=== PATIENT | female | born 1930 | race Caucasian/White ===

== ENCOUNTER → 2017-06-14 | Outpatient (CLI) | payer MEDICARE, BC | LOC: COL.LAB 11:10 | DX: Z01.812 Encounter for preprocedural laboratory examination (principal) ==

== ENCOUNTER 2017-07-10 09:34 | Observation (INO) | payer MEDICARE, BC ==
[2017-08-14] MEDS ORDERED: VITAMIN B11000 MCG/M IM (03:27)
[2017-08-14] MEDS ORDERED: NORVASC2.5 MG PO (03:28)
[2017-08-14] MEDS ORDERED: LIPITOR 40MG TA40 MG PO (03:28)
[2017-08-14] MEDS ORDERED: TYLENOL 8 HR PO (03:28)
[2017-08-14] MEDS ORDERED: ASPIRIN 32325 MG/TA1 PO (03:28)
[2017-08-14] MEDS ORDERED: BRILINTA90 MG PO (03:29)
[2017-08-14] MEDS ORDERED: COZAAR100 MG PO (03:29)
[2017-08-14] MEDS ORDERED: PROZAC 10MG10 MG PO (03:30)
[2017-08-14] MEDS ORDERED: VITAMIND3 5000 PO (03:30)
[2017-08-14] MEDS ORDERED: CLARITIN 1010 MG/TAB PO (03:31)
[2017-08-14] MEDS ORDERED: NIFEREX-15150 MG/CAP PO (03:32)
[2017-08-14] MEDS ORDERED: VITAMIN C500 MG PO (03:32)
[2017-08-14] MEDS ORDERED: RHINOCORT0.032 MG/1 NS (05:27)
[2017-08-14] MEDS ORDERED: ANTIVERT 25MG25 MG PO (05:28)
[2017-08-14] MEDS ORDERED: FOLIC ACID0.4 MG PO (06:03)
== END 2017-08-14 07:20 | disposition home or self-care (01) ==
LOC: SURG 08-14 05:14 → JCC 08-14 07:30
DX: M16.12 Unilateral primary osteoarthritis, left hip (principal); M70.62 Trochanteric bursitis, left hip; M67.814 Other specified disorders of tendon, left shoulder; Z53.8 Procedure and treatment not carried out for other reasons; L98.419 Non-pressure chronic ulcer of buttock with unspecified severity; E87.8 Other disorders of electrolyte and fluid balance, not elsewhere classified; I10 Essential (primary) hypertension; I35.2 Nonrheumatic aortic (valve) stenosis with insufficiency; I38 Endocarditis, valve unspecified; F32.9 Major depressive disorder, single episode, unspecified; Z87.442 Personal history of urinary calculi; I70.90 Unspecified atherosclerosis; I67.9 Cerebrovascular disease, unspecified; M81.0 Age-related osteoporosis without current pathological fracture; E78.00 Pure hypercholesterolemia, unspecified; R01.1 Cardiac murmur, unspecified; R41.3 Other amnesia; Z87.891 Personal history of nicotine dependence; Z80.9 Family history of malignant neoplasm, unspecified; M21.961 Unspecified acquired deformity of right lower leg; R42 Dizziness and giddiness
CPT/HCPCS: G0378; G0379; J3370; J7050

== ENCOUNTER 2017-09-04 14:21 | Inpatient (IN) | payer MEDICARE, BC ==
[~2017-09-04] VITALS: Ht 167.6 cm; Wt 97.0 kg
[~2017-09-04 14:21] MED LIST: ANTIVERT 25MG25 MG PO; ASPIRIN 32325 MG/TA1 PO; BRILINTA90 MG PO; CLARITIN 1010 MG/TAB PO; COZAAR100 MG PO; FOLIC ACID0.4 MG PO; LIPITOR 40MG TA40 MG PO; NIFEREX-15150 MG/CAP PO; NORVASC2.5 MG PO; PROZAC 10MG10 MG PO; RHINOCORT0.032 MG/1 NS; TYLENOL 8 HR PO; VITAMIN B11000 MCG/M IM; VITAMIN C500 MG PO; VITAMIND3 5000 PO
[2017-09-25] VITALS (11 sets, daily range): BP systolic 128–168; BP diastolic 41–78; PULSE 51–89; TEMP 97.7–98.2
[2017-09-25] MEDS ORDERED: MUCUS RELIEF400 M1 PO (07:30)
[2017-09-25 07:53] LABS: MUCOUS Present /lpf; PH 5 (5-8); SQUAMOUS EPITHELIAL 0-2 /hpf; URINE APPEARANCE Hazy; URINE BACTERIA None Seen /hpf; URINE BILIRUBIN Negative (NEGATIVE); URINE BLOOD Negative (NEGATIVE); URINE COLOR Yellow; URINE GLUCOSE Negative (NEGATIVE); URINE KETONE Negative (NEGATIVE); URINE LEUKOCYTE ESTERASE Negative (NEGATIVE); URINE PROTEIN(semi-quant) Negative (NEGATIVE); URINE RBC 0-2 /hpf; URINE UROBILINOGEN Negative (NEGATIVE)
[2017-09-25 07:58] LABS: COLLECTION METHOD CLEAN CATCH
[2017-09-26] VITALS (7 sets, daily range): BP systolic 125–155; BP diastolic 41–79; PULSE 58–78; TEMP 97.5–98.4
[2017-09-26 07:24] LABS: HEMATOCRIT 34.7 % (37.0-47.0)
[2017-09-27 03:49] VITALS: BP 143/47; PULSE 66; TEMP 98.2
[2017-09-27 06:20] LABS: HEMATOCRIT 31.1 % (37.0-47.0); HEMOGLOBIN 10.1 g/dl (12.5-16.0)
[2017-09-27 07:41] VITALS: BP 128/35; PULSE 56; TEMP 98.1
[2017-09-27 10:58] VITALS: BP 128/35; PULSE 56; TEMP 98.1
== END 2017-09-27 14:25 | DRG 470 ==
LOC: JCC 09-25 07:10
PROVIDERS: Orthopaedic Surgery
PROC: 0SRB0JZ Replacement of Left Hip Joint with Synthetic Substitute, Open Approach (ICD-10-PCS; principal; 2017-09-25 10:00)
DX: M16.12 Unilateral primary osteoarthritis, left hip (principal); I25.10 Atherosclerotic heart disease of native coronary artery without angina pectoris; I10 Essential (primary) hypertension; Z87.891 Personal history of nicotine dependence
CPT/HCPCS: A9284; C1713; C1776; J1100; J1170; J2250; J2370; J2405; J2704; J3010; J3370; J7040; J7050